=== PATIENT | male | born 1960 | race Caucasian/White ===

== ENCOUNTER 2016-07-04 05:36 | Emergency (ER) | payer OTHER ==
--- NOTE | 2016-07-04 05:41 | EDPHY ---
H & P Source: Patient - Medical/Surgical History Hx Diabetes: No - Social History Smoking Status: Never smoked HPI/ROS: HPI CHIEF COMPLAINT: Left flank pain, left lower quadrant abdominal pain with nausea HISTORY OF PRESENT ILLNESS: This patient very pleasant 55-year-old male remote history of a kidney stone 5-10 years ago, presents to the emergency room at 5: 45 a.m. in the morning with onset of left flank pain left lower quadrant abdominal pain. Patient tells me that this feels very similar to his previous history of kidney stone. Tells me he had recent left ankle surgery bunionectomy , and hemorrhoidectomy in the month of May, he has been at times very dehydrated also taking stool softeners due to his hemorrhoidectomy contributing to his dehydration. He thinks that he may have a kidney stone. He tells me that around 10 o'clock last night developed flank pain left lower quadrant pain sharp in nature stay mainly in his left lower quadrant 6/10. States he cannot get comfortable all night decided to come to the emergency room. He does admit to urinary hesitancy, decreased stream and some discomfort when he urinates. Has not seen gross blood. Past Medical History: Kidney stone, hyperlipidemia Past Surgical History: Recent hemorrhoidectomy, recent left ankle surgery, recent bunionectomy Social History: Denies daily use of drugs alcohol tobacco products Family History: Noncontributory ROS REVIEW OF SYSTEMS: A comprehensive 10 point review of systems is otherwise negative aside from elements mentioned in the history of present illness. Exam Constitutional triage nursing summary reviewed, vital signs reviewed, awake/ alert. Eyes normal conjunctivae and sclera, EOMI, PERRLA. HENT normal inspection, atraumatic, moist mucus membranes, no epistaxis, neck supple/ no meningismus, no raccoon eyes. Respiratory clear to auscultation bilaterally, normal breath sounds, no respiratory distress, no wheezing. Cardiovascular rate normal, regular rhythm, no murmur, no edema, distal pulses normal. Gastrointestinal soft, very mild tenderness palpation left lower quadrant, no rebound, no guarding, normal bowel sounds, no distension, no pulsatile mass. Genitourinary no significant left or right CVA tenderness Musculoskeletal no midline vertebral tenderness, full range of motion, no calf swelling, no tenderness of extremities, no meningismus, good pulses, neurovascularly intact. Skin pink, warm, & dry, no rash, skin atraumatic. Neurologic awake, alert and oriented x 3, AAOx3, moves all 4 extremities equally, motor intact, sensory intact, CN II-XII intact, normal cerebellar, normal vision, normal speech. Psychiatric normal mood/affect. Heme/Lymph/Immune no lymphadenopathy. Differential diagnosis includes but is not limited to and in no particular order : Kidney stone, hydroureter, hydronephrosis, Bowel obstruction, appendicitis, gallbladder disease, diverticulitis, colitis, enteritis, perforated viscus, gastritis, GERD, esophagitis, urinary tract infection, pyelonephritis. Medical Decision Making: This patient had an IV established he receive IV fluids, IV morphine for pain control will check urinalysis, blood work he will have a CT scan abdomen pelvis without contrast to help identify the left CVA pain and left lower quadrant pain most likely kidney stone. Will re-evaluate after fluids and pain medicine. Declined any nausea medicine at this time. Re-evaluation: CT scan of the Abdomen pelvis without IV contrast. The results of the study are The study was read by Dr. Gomez I viewed the images myself on the PACS system. 0643: Blood work reviewed, vital signs reviewed. Urinalysis does show large amount of blood. CT scan results are pending at this time. (Jh Cruz) Constitutional: Initial Vital Signs Temperature (C) 36.5 C 07/04/16 05:41 Heart Rate 56 L 07/04/16 05:41 Respiratory Rate 16 07/04/16 05:41 Blood Pressure 169/91 H 07/04/16 05:41 O2 Sat (%) 100 07/04/16 05:41 O2 Delivery Mode Room Air Allergies/Adverse Reactions: No Known Allergies Allergy (Unverified 07/04/16 05:40) Home Medications: Medication Instructions Recorded Aspirin 04/30/16 Herbals/Supplements -Info Only 04/30/16 Lipitor 04/30/16 Cialis 07/04/16 Hydrocodone/Acetaminophen 1 each PO Q4-6PRN PRN #20 tablet 07/04/16 [Hydrocodon-Acetaminophen 5-325] Ondansetron HCl [Zofran] 4 mg PO Q4-6PRN PRN #10 tablet 07/04/16 Tamsulosin HCl [Flomax] 0.4 mg PO DAILY #10 cap 07/04/16 Medical Decision Making - Diagnostics Imaging: CT scan of the abdomen pelvis read by Dr. Anthony Gomez reveals a 3 mm left UVJ stone with associated mild hydronephrosis. There are also multiple tiny bilateral renal calculi. (Bety Singleton) ED Course/Re-evaluation: CT scan results discussed with the patient. He currently has minimal discomfort. Abdomen is soft and nontender. Ready for discharge home. He has previously seen Dr. Baker and will follow up with Dr. Baker in the office if the pain persists. (Bety Singleton) Differential Diagnosis: Differential diagnosis includes though it is not limited to appendicitis, cholecystitis, diverticulitis, pyelonephritis, bowel perforation, small bowel obstruction. (Bety Singleton) - Data Points Laboratory Results: Laboratory Results 07/04/16 05:55 07/04/16 05:55 07/04/16 07/04/16 05:55 05:45 WBC 8.15 10^3/uL (3.80-9.50) RBC 3.94 L 10^6/uL (4.40-6.38) Hgb 12.4 L g/dL (13.7-17.5) Hct 37.4 L % (40.0-51.0) MCV 94.9 fL (81.5-99.8) MCH 31.5 pg (27.9-34.1) MCHC 33.2 g/dL (32.4-36.7) RDW 15.8 H % (11.5-15.2) Plt Count 335 10^3/uL (150-400) MPV 9.1 fL (8.7-11.7) Neut % (Auto) 71.9 % (39.3-74.2) Lymph % (Auto) 21.5 % (15.0-45.0) [place] % (Auto) 4.9 % (4.5-13.0) Eos % (Auto) 0.5 L % (0.6-7.6) Baso % (Auto) 1.0 % (0.3-1.7) Nucleat RBC Rel Count 0.0 % (0.0-0.2) Absolute Neuts (auto) 5.86 10^3/uL (1.70-6.50) Absolute Lymphs (auto) 1.75 10^3/uL (1.00-3.00) Absolute Monos (auto) 0.40 10^3/uL (0.30-0.80) Absolute Eos (auto) 0.04 10^3/uL (0.03-0.40) Absolute Basos (auto) 0.08 10^3/uL (0.02-0.10) Absolute Nucleated RBC 0.00 10^3/uL (0-0.01) Immature Gran % 0.2 % (0.0-1.1) Immature Gran # 0.02 10^3/uL (0.00-0.10) PT 13.1 SEC (12.0-15.0) INR 1.00 (0.83-1.16) APTT 28.1 SEC (23.0-38.0) Sodium 140 mEq/L (134-144) Potassium 4.2 mEq/L (3.5-5.2) Chloride 102 mEq/L (97-110) Carbon Dioxide 26 mEq/l (22-31) Anion Gap 12 mEq/L (8-16) BUN 26 H mg/dL (7-23) Creatinine 0.9 mg/dL (0.7-1.3) Estimated GFR > 60 Glucose 117 H mg/dL (70-100) Calcium 10.0 mg/dL (8.5-10.4) Total Bilirubin 0.7 mg/dL (0.1-1.4) Conjugated Bilirubin 0.3 mg/dL (0.0-0.5) Unconjugated Bilirubin 0.4 mg/dL (0.0-1.1) AST 23 IU/L (17-59) ALT 36 IU/L (21-72) Alkaline Phosphatase 56 IU/L (38-126) Total Protein 6.7 g/dL (6.3-8.2) Albumin 4.6 g/dL (3.5-5.0) Lipase 254.0 IU/L (23-300) Urine Color YELLOW Urine Appearance MODERATELY TURBID Urine pH 5.0 (5.0-7.5) Ur Specific [place] 1.030 (1.002-1.030) Urine Protein NEGATIVE (NEGATIVE) Urine Ketones TRACE H (NEGATIVE) Urine Blood 3+ H (NEGATIVE) Urine Nitrate NEGATIVE (NEGATIVE) Urine Bilirubin NEGATIVE (NEGATIVE) Urine Urobilinogen NEGATIVE EU (0.2-1.0) Ur Leukocyte Esterase NEGATIVE (NEGATIVE) Urine RBC 50-182 H /hpf (0-3) Urine WBC 3-5 H /hpf (0-3) Ur Epithelial Cells TRACE /lpf (NONE-1+) Calcium Oxalate Crystal PRESENT /hpf (NONE-1+) Urine Bacteria TRACE H /hpf (NONE SEEN) Urine Mucus 2+ H /lpf (NONE-1+) Ur Culture Indicated? NOT INDICATED (NI) Urine Glucose NEGATIVE (NEGATIVE) Medications Given: Discontinued Medications Sodium Chloride (Ns) 1,000 mls @ 0 mls/hr IV ONCE ONE PRN Reason: Wide Open Stop: 07/04/16 05:53 Last Admin: 07/04/16 05:59 Dose: 1,000 mls Sodium Chloride (Ns) 1,000 mls @ 0 mls/hr IV ONCE ONE PRN Reason: Wide Open Stop: 07/04/16 06:47 Last Admin: 07/04/16 06:48 Dose: 1,000 mls Ketorolac Tromethamine (Toradol) 30 mg IVP EDNOW ONE Stop: 07/04/16 06:32 Last Admin: 07/04/16 06:45 Dose: 30 mg Morphine Sulfate (Morphine) 4 mg IVP EDNOW ONE Stop: 07/04/16 05:53 Last Admin: 07/04/16 05:59 Dose: 4 mg Morphine Sulfate (Morphine) 4 mg IVP EDNOW ONE Stop: 07/04/16 06:23 Last Admin: 07/04/16 06:31 Dose: 4 mg Departure - Departure Disposition: Home, Routine, Self-Care Clinical Impression: Ureteral calculus, left Abdominal pain Qualifiers: Abdominal location: left lower quadrant Qualifier Code: (R10.32) Left lower quadrant pain Condition: Good Instructions: Kidney Stones (ED), Renal Colic (ED), Flank Pain (ED) Additional Instructions: 1. Stay well-hydrated and drink lots of fluids. 2. Return emergency room if you have worsening pain, fever or vomiting. Referrals: Yudelka Hahn NP [Primary Care Provider] - As per Instructions Bentley Baker MD [Medical Doctor] - As per Instructions Prescriptions: Tamsulosin HCl [Flomax] 0.4 mg PO DAILY #10 cap Hydrocodone/Acetaminophen [Hydrocodon-Acetaminophen 5-325] 1 each PO Q4-6PRN PRN #20 tablet PRN Reason: Pain, Breakthrough Ondansetron HCl [Zofran] 4 mg PO Q4-6PRN PRN #10 tablet PRN Reason: Nausea/Vomiting, Use 1st
[2016-07-04 05:43] VITALS: O2SAT 100
[2016-07-04] MEDS ORDERED: NS 1,000 ML IV ONE ×2 (05:52→06:46)
[2016-07-04 05:59] LABS: COLOR YELLOW; LEUKOCYTE ESTERASE,URINE NEGATIVE (NEGATIVE); NITRITE,URINE NEGATIVE (NEGATIVE)
[2016-07-04 06:00] LABS: % IMMATURE GRANULYOCYTES 0.2 % (0.0-1.1); ABSOLUTE IMMATURE GRANULOCYTES 0.02 10^3/uL (0.00-0.10); ADD DIFF? NO; ADD MORPH? NO; ADD SCAN? NO; ATYPICAL LYMPHOCYTE FLAG 0 (0-99); FRAGMENT RBC FLAG 0 (0-99); HEMATOCRIT 37.4 % (40.0-51.0); HEMOGLOBIN 12.4 g/dL (13.7-17.5); LEFT SHIFT FLG 0 (0-99); LIPEMIA HEMOLYSIS FLAG 80 (0-99); MEAN CELL HEMOGLOBIN 31.5 pg (27.9-34.1); MEAN CELL HEMOGLOBIN CONCENTR. 33.2 g/dL (32.4-36.7); MEAN CELL VOLUME 94.9 fL (81.5-99.8); MEAN PLATELET VOLUME 9.1 fL (8.7-11.7); PLATELET CLUMPS FLAG 20 (0-99); PLATELET COUNT 335 10^3/uL (150-400); RED BLOOD CELL COUNT 3.94 10^6/uL (4.40-6.38); RED CELL DISTRIBUTION WIDTH 15.8 % (11.5-15.2)
[2016-07-04 06:06] LABS: BACTERIA TRACE /hpf (NONE SEEN); MUCUS 2+ /lpf (NONE-1+); RBC,URINE 50-182 /hpf (0-3)
[2016-07-04 06:12] LABS: PROTIME(PATIENT) 13.1 SEC (12.0-15.0)
[2016-07-04 06:13] LABS: APTT 28.1 SEC (23.0-38.0)
[2016-07-04 06:30] LABS: ALANINE AMINOTRANSFERASE 36 IU/L (21-72); ALBUMIN 4.6 g/dL (3.5-5.0); ALKALINE PHOSPHATASE 56 IU/L (38-126); ANION GAP 12 mEq/L (8-16); ASPARTATE AMINOTRANSFERASE 23 IU/L (17-59); BILIRUBIN,TOTAL 0.7 mg/dL (0.1-1.4); BILIRUBIN-CONJUGATED 0.3 mg/dL (0.0-0.5); BILIRUBIN-UNCONJUGATED 0.4 mg/dL (0.0-1.1); CARBON DIOXIDE 26 mEq/l (22-31); CHLORIDE 102 mEq/L (97-110); CREATININE 0.9 mg/dL (0.7-1.3); GLOMERULAR FILTRATION RATE > 60; GLUCOSE 117 mg/dL (70-100); POTASSIUM 4.2 mEq/L (3.5-5.2); SODIUM 140 mEq/L (134-144); TOTAL PROTEIN 6.7 g/dL (6.3-8.2)
[2016-07-04] MEDS ORDERED: KETOROLAC 30 MG/1 ML SDV IVP ONE (06:31)
--- NOTE | 2016-07-04 07:55 | CT ---
CT Abdomen and Pelvis (Without Contrast) 0608 hours History: Left flank pain. Technique: Spiral images were acquired from the upper abdomen through the pelvis without intravenous or oral contrast which limits the study. Dose reduction techniques were utilized. Findings: Abdomen: Mild left hydroureteronephrosis secondary to a 3 mm calculus in the distal left ureterovesic al junction, image 243 of series 4. Also in the left kidney lower pole, there is an additional 2 mm c alyceal calculus, image 127 of series 4. In the right kidney, there are two nonobstructing 3 mm calyc eal calculi, image 104 of series 4 and 114 of series 4. No right hydronephrosis or right ureterolithi asis. Small hiatal hernia. No hepatomegaly or ascites. No peripancreatic fluid. No aortic aneurysm. No nancy l obstruction or pneumoperitoneum. Appendix appears normal without inflammatory changes. No significa nt adenopathy. Pelvis: A 3 mm calculus in the distal left ureterovesical junction. Moderate degenerative disk disea se in the lumbar spine at L5-S1 with disk space narrowing. Impression: 1. Mild left hydroureteronephrosis secondary to a 3 mm obstructing calculus in the distal left ureter ovesical junction. 2. Additional bilateral calyceal nephrolithiasis. 3. No right hydronephrosis. 4. Small hiatal hernia. Findings and recommendations discussed with Emergency Department physician, Dr. Bety Singleton, at 0730 hours today. Final report concurs with initial preliminary interpretation. Attention: This CT examination is specifically designed to evaluate patients who are clinically susp ected of having acute obstructive uropathy. This examination does not use radiographic contrast, and as such, provides only a limited evaluation of the abdomen, pelvis and retroperitoneum. If there is further clinical suspicion for pathological conditions other than obstructive uropathy, a complete C T evaluation of the abdomen and pelvis utilizing intravenous, oral, and rectal contrast should be con sidered.
[2016-07-04 08:04] VITALS: BP 123/74; PULSE 72; RESP 95; TEMP 98.6
== END 2016-07-04 08:03 | disposition home or self-care (01) ==
DX: N20.1 Calculus of ureter (principal); Z79.82 Long term (current) use of aspirin
CPT/HCPCS: 96374; J1885

== ENCOUNTER 2016-12-21 00:09 | Emergency (ER) | payer OTHER ==
[2016-12-21 00:18] VITALS: BP 150/81; PULSE 71; RESP 20; O2SAT 97
[2016-12-21 00:34] VITALS: TEMP 97.9
[2016-12-21] MEDS ORDERED: TDAP ADULT 0.5 ML INJ (BOOSTRIX) IM ONE (00:35)
--- NOTE | 2016-12-21 00:42 | EDPHY ---
H & P Stated Complaint: TRIPPED, HIT BRIDGE OF NOSE ON FURNITURE 1.5 HRS AGO Time Seen by Provider: 12/21/16 00:18 HPI/ROS: HPI The patient presents with injury to his nose which occurred about 30 minutes prior to arrival. He tripped and fell [place] landing on his nose. He had bleeding in pain instantly, this is associated with swelling of the nose. He had epistaxis, though this is now resolved. He did not lose consciousness. He is unsure of his last tetanus vaccine.. REVIEW OF SYSTEMS Constitutional: No fever, no chills. Skin: No rashes. Neurological: No headache. PMHx: Healthy, history of rhinoplasty Soc Hx: Housed PHYSICAL General Appearance: Alert, no distress Eyes: Pupils equal and round no pallor or injection ENT, Mouth: There is a 2 cm gaping laceration which is longitudinal, inferior to the bridge of the nose, there superficial abrasions lateral to this on the right, nose is diffusely edematous and slightly deviated, no septal hematoma Respiratory: Breathing comfortably Neurological: A&O, moves all extremities Skin: Warm and dry, no rashes Psychiatric: Patient is oriented X 3, there is no agitation Source: Patient, Family - Personal History Current Tetanus/Diphtheria Vaccine: Unsure - Medical/Surgical History Hx Asthma: No Hx Chronic Respiratory Disease: No Hx Diabetes: No Hx Cardiac Disease: No Hx Renal Disease: No Hx Cirrhosis: No Hx Alcoholism: No Hx HIV/AIDS: No Hx Splenectomy or Spleen Trauma: No Other PMH: hemmoroid surgery, kidney stone, bunyan surgery, HERNIA - Social History Smoking Status: Never smoked Constitutional: Initial Vital Signs Temperature (C) 36.6 C 12/21/16 00:11 Heart Rate 71 12/21/16 00:11 Respiratory Rate 20 12/21/16 00:11 Blood Pressure 150/81 H 12/21/16 00:11 O2 Sat (%) 97 12/21/16 00:11 O2 Delivery Mode Room Air Allergies/Adverse Reactions: No Known Allergies Allergy (Unverified 12/21/16 00:11) Home Medications: Medication Instructions Recorded Aspirin 04/30/16 Herbals/Supplements -Info Only 04/30/16 Lipitor 04/30/16 Cialis 07/04/16 Medical Decision Making Procedures: LACERATION REPAIR Procedure: Laceration repair. Verbal consent was obtained from the patient. The linear 3 cm laceration on the nose was anesthetized using lidocaine. The wound was scrubbed, draped and explored to its base with a gloved finger. There were no deep structures involved. The wound was repaired with 5-0 nylon sutures, simple interrupted. The wound repair was simple. The procedure was performed by myself. Differential Diagnosis: This is a 55-year-old male who had a mechanical fall 30 minutes prior to arrival , landing with his nose hitting a sharp corner. He has sustained a nasal laceration and likely has nasal fracture as well. Plan for repair of laceration in the emergency room, update his tetanus vaccine, we will refer him to ENT for likely nasal bone fracture. Sutures should be removed in 5 days. Have recommended ice, ibuprofen as needed for pain. Differential diagnoses considered include nasal bone fracture, nasal laceration , septal hematoma. - Data Points Medications Given: Discontinued Medications Diphtheria/Tetanus/Acell Pertussis (Boostrix) 0.5 ml IM .ONCE ONE Stop: 12/21/16 00:36 Last Admin: 12/21/16 00:51 Dose: 0.5 ml Departure - Departure Disposition: Home, Routine, Self-Care Clinical Impression: Laceration of nose Qualifiers: Encounter type: initial encounter Qualified Code(s): S01.21XA - Laceration without foreign body of nose, initial encounter Nose fracture Qualifiers: Encounter type: initial encounter Fracture type: closed Qualified Code(s): S02.2XXA - Fracture of nasal bones, initial encounter for closed fracture Condition: Good Instructions: Care For Your Stitches (ED), Nasal Fracture (ED), Facial Laceration (ED) Additional Instructions: Please use ice 20 minutes at a time every few hours to help with pain. You should keep the stitches covered with antibiotic ointment on them. You may want sleep with the head of the bed elevated to help with swelling. Please follow-up with the [facility] Nose [facility] Throat doctors for your likely broken nose. Referrals: Yudelka Hahn NP [Primary Care Provider] - As per Instructions Ravinder Baez MD [Medical Doctor] - As per Instructions
== END 2016-12-21 01:33 | disposition home or self-care (01) ==
PROC: 09QKXZZ Repair Nasal Mucosa and Soft Tissue, External Approach (ICD-10-PCS; principal; 2016-12-21)
DX: S02.2XXA Fracture of nasal bones, initial encounter for closed fracture (principal); S01.21XA Laceration without foreign body of nose, initial encounter; Z23 Encounter for immunization; Z79.82 Long term (current) use of aspirin; W01.198A Fall on same level from slipping, tripping and stumbling with subsequent striking against other object, initial encounter; Y92.89 Other specified places as the place of occurrence of the external cause

== ENCOUNTER 2018-12-10 21:22 | Emergency (ER) | payer OTHER | END 2018-12-11 00:12 | disposition home or self-care (01) ==